=== PATIENT | female | born 1940 | race Caucasian/White ===

== ENCOUNTER 2023-03-20 12:32 | Day surgery (SDC) | payer MEDICARE, MEDICAID ==
[2023-03-16 12:50] LABS: APTT 26 SECONDS (22-32); BASOPHILS % (AUTO) 0.4 % (0-1); EOSINOPHILS # (AUTO) 0.3 X10'3 (0-0.9); EOSINOPHILS % (AUTO) 3.6 % (0-6); HEMATOCRIT 40.7 % (35.0-45.0); HEMOGLOBIN 13.5 g/dl (12.0-16.0); LYMPHOCYTES # (AUTO) 2.2 X10'3 (1.1-4.8); LYMPHOCYTES % (AUTO) 28.2 % (21-51); MEAN CORPUSCULAR HEMOGLOBIN 32.5 PG (27.0-31.0); MEAN CORPUSCULAR HGB CONC 33.3 g/dL (33.0-36.5); MEAN CORPUSCULAR VOLUME 97.6 FL (78-98); MEAN PLATELET VOLUME 7.6 FL (7.4-10.4); MONOCYTES # (AUTO) 0.8 X10'3 (0-0.9); MONOCYTES % (AUTO) 9.6 % (2-12); NEUTROPHILS # (AUTO) 4.6 X10'3 (1.8-7.7); NEUTROPHILS % (AUTO) 58.2 % (42-75); PLATELET COUNT 153 X10'3 (140-440); PROTHROMBIN TIME 10.4 SECONDS (9.0-12.0); RED BLOOD COUNT 4.17 X10'6 (4.20-5.60); WHITE BLOOD COUNT 7.9 X10'3 (4.5-11.0)
[2023-03-16 12:54] LABS: ALBUMIN 3.7 G/DL (3.4-5.0); ANION GAP 9 (8-16); BLOOD UREA NITROGEN 21 MG/DL (7-18); BUN/CREATININE RATIO 19.8 (10.0-20.0); CALCIUM 9.3 MG/DL (8.5-10.1); CHLORIDE 104 MMOL/L (99-107); CHOL/HDL RATIO 2.5 (0.00-4.99); CHOLESTEROL 157 MG/DL (0-200); CREATININE 1.06 MG/DL (0.40-0.90); GLUCOSE 91 MG/DL (70-104); HDL CHOLESTEROL 62 MG/DL (35-60); LDL CHOLESTEROL 75 MG/DL (50-100); POTASSIUM 4.3 MMOL/L (3.5-5.1); SODIUM 141 MMOL/L (135-145); TOTAL CARBON DIOXIDE 28.2 MMOL/L (24-32); TRIGLYCERIDES 65 MG/DL (20-135); eGFR 50 ML/MIN
[2023-03-20] VITALS (8 sets, daily range): BP systolic 135–165; BP diastolic 62–91; PULSE 60–72; RESP 12–22; TEMP 99.3; O2SAT 60–96
[~2023-03-20] VITALS: Ht 157.5 cm; Wt 53.5 kg
[2023-03-20] MEDS ORDERED: normal saline 1,000 ML IV SCH (13:05)
[2023-03-20] MEDS ORDERED: diphenhydrAMINE 25mg capsule PO PRN (13:05)
[2023-03-20] MEDS ORDERED: LORazepam 0.5 MG tablet PO PRN (13:05)
[2023-03-20] MEDS ORDERED: ASPI81TA52 PO (13:06)
[2023-03-20] MEDS ORDERED: ATOR-2 PO (13:06)
[2023-03-20] MEDS ORDERED: BUDE10.2 INH (13:06)
[2023-03-20] MEDS ORDERED: LOSA50TA64 PO (13:06)
[2023-03-20] MEDS ORDERED: CARV6.2553 PO (13:06)
[2023-03-20] MEDS ORDERED: verapamil 2.5 mg/ml inj IV ONE (14:43)
[2023-03-20] MEDS ORDERED: midazolam 1 mg/ML 2ml injection ONE (14:43)
[2023-03-20] MEDS ORDERED: LIDOcaine 1% (10mg/ml) 2ml vial ONE (14:43)
[2023-03-20] MEDS ORDERED: fentaNYL/PF 50MCG/1 ML 2ML syringe ONE (14:44)
[2023-03-20] MEDS ORDERED: heparin 1,000unit/ml 10ml vial 0 ML ONE (14:44)
[2023-03-20] MEDS ORDERED: iohexol 350MG/ML 100ml bottle IV ONE ×2 (14:44→15:20)
[2023-03-20] MEDS ORDERED: nitroGLYCERIN 500mcg/5mL D5W 5 ML IV ONE (14:45)
[2023-03-20] MEDS ORDERED: LIDOcaine 1% (10mg/ml)w/preservative inj. 20ml MDV ONE (14:55)
[2023-03-20] MEDS ORDERED: iohexol 350 MG/ML 50ML vial IV ONE (15:25)
== END 2023-03-20 19:30 | disposition home or self-care (01) ==
LOC: SSTAY O 12:32
PROVIDERS: ATTEND Student in an Organized Health Care Education/Training Program
DX: R94.39 Abnormal result of other cardiovascular function study (principal); I25.10 Atherosclerotic heart disease of native coronary artery without angina pectoris; I25.82 Chronic total occlusion of coronary artery; I11.0 Hypertensive heart disease with heart failure; I50.9 Heart failure, unspecified; I73.9 Peripheral vascular disease, unspecified; Z88.8 Allergy status to other drugs, medicaments and biological substances; Z91.040 Latex allergy status
CPT/HCPCS: 36415; 80048; 80061; 85025; 85610; 85730; 93005; 93455; 93567; J1644; J2250; J3010; J3490; J7030; Q0163; Q9967; 99152; 99153; A6258; C1760; C1894